=== PATIENT | female | born 1980 | race Caucasian/White ===

== ENCOUNTER 2018-02-28 08:55 | Day surgery (SDC) | payer OTHER ==
[~2018-02-28] VITALS: Ht 167.6 cm; Wt 92.1 kg
[~2018-02-28 08:55] MED LIST: PRENATALS
[2018-02-28] MEDS ORDERED: fentaNYL 0.05 MG/ML VIAL ONE (11:45)
[2018-02-28] MEDS ORDERED: MIDAZOLAM 2 MG/2 ML VIAL ONE (11:45)
== END 2018-02-28 12:57 | disposition home or self-care (01) ==
LOC: MDS 08:55 → MMU 08:56 → MDS 12:57
PROVIDERS: ATTEND Internal Medicine Gastroenterology
DX: K29.70 Gastritis, unspecified, without bleeding (principal); K20.8 Other esophagitis; F17.210 Nicotine dependence, cigarettes, uncomplicated; E66.9 Obesity, unspecified; Z68.32 Body mass index [BMI] 32.0-32.9, adult; Z98.890 Other specified postprocedural states; Z72.89 Other problems related to lifestyle; Z79.899 Other long term (current) drug therapy
CPT/HCPCS: 36415; 43239; 86677; J2250; J3010

== ENCOUNTER 2020-05-09 18:13 | Emergency (ER) | payer OTHER ==
[~2020-05-09] VITALS: Ht 165.1 cm; Wt 93.4 kg
[2020-05-09 18:19] VITALS: BP 156/96
--- NOTE | 2020-05-09 18:23 | NUR ---
PATIENT AMBULATED TO BED 02
--- NOTE | 2020-05-09 18:25 | NUR ---
39 Y/O FEMALE FROM HOME C/O HEADACHE WITH INTERMITTENT DIZZINESS SINCE LAST NIGHT. PT DENIES NAUSEA/VOMITING. STATES 6/10 ACHING PAIN TO HEAD. AWAKE AND ALERT. DENIES NUMBNESS/TINGLING. VSS MEDHX: DENIES
[2020-05-09] MEDS ORDERED: MECLIZINE 25 MG TAB PO ONE (18:30)
[2020-05-09] MEDS ORDERED: KETOROLAC 60 MG/2 ML VIAL IM ONE (18:55)
[2020-05-09] MEDS ORDERED: ONDA8TAB87 PO (19:01)
[2020-05-09] MEDS ORDERED: IBUP-2213 PO (19:01)
[2020-05-09] MEDS ORDERED: MECL-303 PO (19:01)
--- NOTE | 2020-05-09 19:05 | NUR ---
Pt given toradol medication and is awaiting discharge after re-assessment of medication. Addendum: 05/09/20 at 1907 by [email or web address] Pt in no distress. Awaiting discharge. Endorsed care to SYOMNE Bacon. Discussed care provided and poc
--- NOTE | 2020-05-09 19:15 | NUR ---
Received bedside endorsement from am shift RN.
[2020-05-09 19:20] VITALS: BP 156/96
--- NOTE | 2020-05-09 19:20 | NUR ---
Patient discharged with v/s stable. Written and verbal after care instructions given and explained. Pt verbalized pain decreased to 2/10, tolerable. Patient alert, oriented and verbalized understanding of instructions. Ambulatory with steady gait. All questions addressed prior to discharge. ID band removed. Patient advised to follow up with PMD. Rx of zofran, meclizine, ibuprofen given. Patient educated on indication of medication including possible reaction and side effects. Opportunity to ask questions provided and answered.
== END 2020-05-09 19:20 | disposition home or self-care (01) ==
LOC: MED 18:13
DX: H81.10 Benign paroxysmal vertigo, unspecified ear (principal); R51.9 Headache, unspecified; Z79.899 Other long term (current) drug therapy
CPT/HCPCS: 96372; 99283; J1885; J8597

== ENCOUNTER 2020-06-19 12:42 | Emergency (ER) | payer OTHER ==
[~2020-06-19] VITALS: Ht 167.6 cm; Wt 90.7 kg
[~2020-06-19 12:42] MED LIST changes: +IBUP-2213 PO; +MECL-303 PO; +ONDA8TAB87 PO
[2020-06-19 12:54] VITALS: BP 153/77
[2020-06-19] MEDS ORDERED: KETOROLAC 60 MG/2 ML VIAL IM ONE (13:10)
[2020-06-19] MEDS ORDERED: METH750T5 PO (13:14)
[2020-06-19] MEDS ORDERED: NAPR-54 PO (13:14)
[2020-06-19 14:10] VITALS: BP 153/77
== END 2020-06-19 14:06 | disposition home or self-care (01) ==
LOC: MED 12:42
DX: S39.011A Strain of muscle, fascia and tendon of abdomen, initial encounter (principal); Z79.899 Other long term (current) drug therapy; X58.XXXA Exposure to other specified factors, initial encounter; Y93.89 Activity, other specified; Y92.89 Other specified places as the place of occurrence of the external cause; Y99.8 Other external cause status
CPT/HCPCS: 81002; 81025; 96372; 99283; J1885